=== PATIENT | male | born 1940 | race Caucasian/White ===

== ENCOUNTER 2022-03-24 13:02 | Emergency (ER) | payer MEDICARE ==
[~2022-03-24] VITALS: Ht 175.3 cm; Wt 90.0 kg
[~2022-03-24 13:02] MED LIST: AMLODIPINE BESYL5 MG PO; ASPIRIN ADULT L81 M2 PO; MECLIZINE25 MG PO
[2022-03-24 14:00] VITALS: BP 156/77
== END 2022-03-24 14:38 | disposition home or self-care (01) ==
LOC: ED 13:02
DX: S01.111D Laceration without foreign body of right eyelid and periocular area, subsequent encounter (principal); X58.XXXD Exposure to other specified factors, subsequent encounter